=== PATIENT | male | born 1985 | race Caucasian/White ===

== ENCOUNTER 2018-03-18 10:01 | Observation (INO) | payer MEDICAID, SELFPAY ==
[2018-03-18] VITALS (10 sets, daily range): BP systolic 101–133; BP diastolic 64–81; PULSE 56–87; RESP 14–24; TEMP 36.6–36.8; O2SAT 97–98; BMI 30.1; BMI 30.2
--- NOTE | 2018-03-18 10:06 | EKG12_ITS ---
Test Reason : CP Blood Pressure : / mmHG Vent. Rate : 075 BPM Atrial Rate : 075 BPM P-R Int : 130 ms QRS Dur : 090 ms QT Int : 370 ms P-R-T Axes : 012 016 016 degrees QTc Int : 413 ms Normal sinus rhythm Normal ECG Confirmed by TARIK ZAYAS MD ([id number]), subeditor MARY MATUTE ([id number] on 03/23/2018 1:34:23 PM Referred By: Confirmed By:TARIK ZAYAS MD
--- NOTE | 2018-03-18 10:06 | RAD_ITS ---
STUDY: X-RAY CHEST REASON FOR EXAM: Male, 32 years old. Chest pain. TECHNIQUE: Single AP portable view of the chest. COMPARISON: None. FINDINGS: EKG electrodes are seen. The lungs are clear and expanded. There is no demonstrated pleural abnormality. Normal size heart. Normal mediastinum and jose. Normal visualized pulmonary arteries. Normal visualized aortic arch and descending thoracic aorta. Normal visualized thoracic spine. Normal visualized ribs, clavicles, and shoulders. There is no demonstrated abnormality of the visualized soft tissue structures of the upper abdomen. RAD/Chest 1 View (Portable) IMPRESSION: Normal x-ray examination of the chest. Electronically Signed: Aleksey Rios MD at 11:22 EDT Tel [phone], Service support ,
[2018-03-18 10:27] LABS: Absolute Lymphocyte Count 2.73 X10^3/ul (0.83-4.51); Absolute Neutrophil Count 3.7 X10^3/uL (2.0-7.7); Basophil# 0.06 X10^3/uL; Basophil% 0.8 % (0-1); Eosinophil# 0.34 X10^3/uL; Eosinophils% 4.4 % (0-5); Hematocrit 45.5 % (40-54); Hemoglobin 15.5 g/dl (13.0-16.5); Lymphocyte # 2.73 X10^3/ul (4.0); Lymphocyte % 35.7 % (19-41); Mean Corp Hgb Conc 34.1 g/gl (32-36); Mean Corpuscular Hgb 30.2 pg (27.0-32.0); Mean Corpuscular Volume 88.7 fL (80-94); Mean Platelet Vol. 8.7 fl (6.2-12.0); Monocyte# 0.74 X10^3/uL; Monocyte% 9.7 % (0-10); Neutrophil # 3.74 X10^3/uL (2.7-7.7); Neutrophil % 48.9 % (47-70); POSITIVE COUNT NO; POSITIVE DIFFERENTIAL NO; POSITIVE MORPHOLOGY NO; Platelet Count 294 K/mm3 (150-450); RBC Distribution Width CV 13.1 % (11.6-14.6); RBC Distribution Width SD 42.5 fl (35.1-43.9); Red Blood Count 5.13 M/mm3 (4.6-6.2); White Blood Count 7.7 K/mm3 (4.4-11.0)
--- NOTE | 2018-03-18 10:38 | ED.VISSUMM ---
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 He indicates he began having a chest pressure yesterday he left work pain went away and seemed to recur today and he comes in for evaluation. He does indicate that recently he is noticed with exertion he seems to have more chest discomfort. He has had no fever no cough no abdominal pain no history of PR PE or DVT about a year or 2 ago he was seen for similar type chest pain at a hospital near [facility] told he would need cardiac echo and other testing with that was never scheduled He does smoke a pack a day, no family history no tobacco on his part no illicit drug use pain is currently about a 3 out of 10 Physical Examination: [] No distress resting comforting the bed head exams unremarkable the lungs are clear heart tones are normal abdomen soft nontender upper lower extremities unremarkable pulses symmetric bilaterally he is moving all 4 extremities neurologically normal Test Results: [] Emergency Department Course and Treatment: [] EKG shows a sinus rhythm nothing acute screening labs are obtained aspirin EKG labs troponin chest x-ray unremarkable see those reports on reevaluation is resting comfortably remains without chest pain now he is concerned about the nature of the chest pain the fact that it is exertional goes into his left side that he had it before we discussed inpatient versus outpatient management and he is requesting admission for further evaluation and management this time page the hospitalist and asked him to see the patient for admission Treatment Plan: [] Disposition: [] Admit pending hospitalist evaluation Impression: [] Chest pain with exertional symptoms This note was generated with [employer] dictation software. It may contain incorrect words, spelling, and punctuation that were not noted in review of the chart prior to signing ED Disposition - Plan for ED Patient: Chief Complaint: Chest Pain Referrals: NOT,DEFINED [NON-STAFF] -
--- NOTE | 2018-03-18 10:41 | ED.DCSUM_ITS ---
- ER Visit Summary Date of Service: 03/18/18 Chief Complaint: [] Chest pressure since yesterday History of Present Illness: The patient is a 32 M [] denies a past history except to report at he had some type of a stroke left him with right- sided weakness and a seizure disorder the seizure disorder is well controlled is on no meds. 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 He indicates he began having a chest pressure yesterday he left work pain went away and seemed to recur today and he comes in for evaluation. He does indicate that recently he is noticed with exertion he seems to have more chest discomfort. He has had no fever no cough no abdominal pain no history of [place] PE or DVT about a year or 2 ago he was seen for similar type chest pain at a hospital near [facility] told he would need cardiac echo and other testing with that was never scheduled He does smoke a pack a day, no family history no tobacco on his part no illicit drug use pain is currently about a 3 out of 10 Physical Examination: [] No distress resting comforting the bed head exams unremarkable the lungs are clear heart tones are normal abdomen soft nontender upper lower extremities unremarkable pulses symmetric bilaterally he is moving all 4 extremities neurologically normal Test Results: [] Emergency Department Course and Treatment: [] EKG shows a sinus rhythm nothing acute screening labs are obtained aspirin EKG labs troponin chest x-ray unremarkable see those reports on reevaluation is resting comfortably remains without chest pain now he is concerned about the nature of the chest pain the fact that it is exertional goes into his left side that he had it before we discussed inpatient versus outpatient management and he is requesting admission for further evaluation and management this time page the hospitalist and asked him to see the patient for admission Treatment Plan: [] Disposition: [] Admit pending hospitalist evaluation Impression: [] Chest pain with exertional symptoms This note was generated with [employer] dictation software. It may contain incorrect words, spelling, and punctuation that were not noted in review of the chart prior to signing ED Disposition - Plan for ED Patient: Chief Complaint: Chest Pain Referrals: NOT,DEFINED [NON-STAFF] -
[2018-03-18] MEDS: Aspirin 81 MG TAB.CHEW 324 MG PO (10:43)
[2018-03-18] MEDS: 0.9% Normal Saline 1,000 ML 150 ML IV ×3 (10:43→20:07)
[2018-03-18 10:44] LABS: Anion Gap 7 (5-15); BUN 14 mg/dL (7-18); BUN/Creat Ratio 13.3 RATIO (10-20); Calcium,Total 9.4 mg/dL (8.5-10.1); Chloride 107 mmol/L (98-107); Creatinine, Serum 1.05 mg/dL (0.70-1.30); EST Glomerular Filtration Rate 87 mL/min (>60); Est Glom Filt Rate - Afr Amer 105 mL/min (>60); Estimated Creatinine Clearance 94.43 ml/min; Glucose 107 mg/dL (74-106); Sodium Level 139 mmol/L (136-145)
[2018-03-18 12:04] LABS: D-Dimer Quantitative (DVT/PE) < 0.27 FEU/ug/m (0.27-0.49)
--- NOTE | 2018-03-18 12:13 | HP.PCM_ITS ---
Problem List (1) Acute chest pain Status: Acute (2) Tobacco dependence Status: Chronic (3) BMI 30.0-30.9,adult Status: Chronic History of Present Illness Date of Admission: 03/18/18 Chief Complaint: Chest pain The patient is a 32 year old M in relatively good health with past medical history only significant for tobacco dependence who presented with chest pain. Pain started while is awake located in the left upper chest radiating down his left arm. Patient denies any shortness of breath no nausea no vomiting. Patient apparently had a similar presentation almost a year ago was seen at another hospital office stress test and echo however he refused. He presented to the emergency department where his initial set of cardiac enzymes came back negative. He was admitted to regular nursing floor for subsequent evaluation Past Medical History Past Medical History (Chronic Problems): Chronic Problems Tobacco dependence (Chronic) BMI 30.0-30.9,adult (Chronic) Allergies Penicillins [PCN] Allergy (Verified 03/18/18 10:43) Rash Home Medications: Ambulatory Orders Medication Instructions Recorded NK [NK] 03/18/18 Smoking Status: Current every day smoker - *Family History Paternal History Items: No pertinent history Maternal History Items: No pertinent history Review of Systems Constitutional: Denies: Anorexia, Chills, Fever, Night Sweats, Weight Change HEENT: Denies: Head Aches, Sinus Congestion, Sinus Drainage Cardiovascular: Reports: Chest Pain. Denies: Orthopnea, Palpitations, Paroxysmal Noc. Dyspnea Respiratory: Denies: Cough, Shortness of breath at rest, Shortness of breath upon exertion, Sputum production Gastrointestinal: Denies: Abdominal Pain, Hematemesis, Hematochezia, Nausea, Melena, Vomiting Genitourinary: Denies: Dysuria, Frequency, Hematuria, Urgency Musculoskeletal: Denies: Joint Pain, Joint Tenderness Skin: Denies: Rash Neurological: Denies: Focal weakness, Numbness, Tingling Psychiatric: Denies: Homicidal Ideations, Suicidal Ideations Hematologic/ Lymphatic: Denies: Easy Bruising, Easy Bleeding VTE Information - Inpt Only VTE Present on Admission: No VTE Mechan Device Prophylaxis: Knee High KOBE Hose VTE Pharm Prophylaxis ordered?: Yes Patient Problems: Active and Suspected Problems Acute chest pain (Acute) Objective: GENERAL: cooperative HEENT: Clear conjunctiva, NECK; supple, normal thyroid, CHEST: Clear to auscultation bilaterally, HEART: Regular S1 S2, no audible murmurs ABDOMEN: soft, non-tender, normoactive bowel sounds, RECTAL: deferred EXTREMITIES: No edema, no clubbing, no cyanosis. 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 SKIN: No lesions no erythema, - Physical Exam Vital Signs Temp Pulse Resp BP Pulse Ox 97.9 F 73 16 133/81 H 98 03/18/18 10:02 03/18/18 10:02 03/18/18 10:02 03/18/18 10:02 03/18/18 10:02 Oxygen Flow Rate (L/min) 2 Oxygen Delivery Method Nasal Cannula Weight: 87.2 kg Body Mass Index (BMI) 30.1 Laboratory Tests Past 24 Hrs 03/18/18 03/18/18 03/18/18 10:20 10:20 10:20 WBC 7.7 RBC 5.13 Hgb 15.5 Hct 45.5 MCV 88.7 MCH 30.2 MCHC 34.1 RDW 13.1 RDW Differential 42.5 Plt Count 294 MPV 8.7 Immature Gran % (Auto) 0.500 Neut % (Auto) 48.9 Lymph % (Auto) 35.7 [place] % (Auto) 9.7 Eos % (Auto) 4.4 Baso % (Auto) 0.8 Absolute Neuts (auto) 3.7 Absolute Lymphs (auto) 2.73 Total Counted Not Reportable D-Dimer Quant (PE/DVT) < 0.27 L Sodium 139 Potassium 4.0 Chloride 107 Carbon Dioxide 25.0 Anion Gap 7 BUN 14 Creatinine 1.05 Estim Creat Clear Calc 94.43 Est GFR (MDRD) Af Amer 105 Est GFR (MDRD) Non-Af 87 BUN/Creatinine Ratio 13.3 Glucose 107 H Calcium 9.4 Troponin I < 0.015 Assessment/Plan Active and Suspected Problems Acute chest pain (Acute) Patient is a 32-year-old gentleman presenting with chest pain 1. Chest Pain: Placed on a monitored bed; rule out for Myocardial infarction with serial cardiac enzymes and EKGs. If negative, rule out Myocardial Ischemia with nuclear medicine stress test. 2. Tobacco dependence counseled on cessation, offered nicotine patch for tobacco cravings 3. Obesity with BMI of 30.1 weight loss advised 4. DVT prophylaxis low risk did encourage early ambulation Code Visit OBSV E&M: 79682 Initial observation care L3
--- NOTE | 2018-03-18 13:32 | EKG12_ITS ---
Test Reason : ADMISSION CP EKG Blood Pressure : / mmHG Vent. Rate : 061 BPM Atrial Rate : 061 BPM P-R Int : 140 ms QRS Dur : 092 ms QT Int : 398 ms P-R-T Axes : 012 017 018 degrees QTc Int : 400 ms Normal sinus rhythm with sinus arrhythmia Normal ECG No previous ECGs available Confirmed by MARQUEZ JIN, TARIK ([id number]), scientific publications editor MARY MATUTE ([id number]) on 03/23/2018 2:14:06 PM Referred By: JAMES Confirmed By:TARIK ZAYAS MD
[2018-03-19 01:51] VITALS: BP 93/46; PULSE 60; RESP 13; TEMP 36.6; O2SAT 97
[2018-03-19] MEDS: 0.9% Normal Saline 1,000 ML 150 ML IV (02:28)
[2018-03-19 03:07] VITALS: PULSE 49
[2018-03-19 03:13] VITALS: PULSE 56
--- NOTE | 2018-03-19 05:55 | EKG12_ITS ---
Test Reason : AM EKG Blood Pressure : / mmHG Vent. Rate : 061 BPM Atrial Rate : 061 BPM P-R Int : 132 ms QRS Dur : 098 ms QT Int : 400 ms P-R-T Axes : 032 025 021 degrees QTc Int : 402 ms Normal sinus rhythm Normal ECG When compared with ECG of 18-MAR-2018 13:58, MANUAL COMPARISON REQUIRED, DATA IS UNCONFIRMED Confirmed by MARQUEZ JIN, TARIK ([id number]), film or videotape editor MARY MATUTE ([id number]) on 03/23/2018 2:15:13 PM Referred By: JAMES Confirmed By:TARIK ZAYAS MD
[2018-03-19 05:59] VITALS: BP 113/81; PULSE 68; RESP 20; TEMP 36.4; O2SAT 97
[2018-03-19] MEDS: 0.9% NaCl Peripheral Flush Adult/Peds IV (06:05)
[2018-03-19 06:14] VITALS: PULSE 59
[2018-03-19 06:24] LABS: Hematocrit 41.7 % (40-54); Hemoglobin 14.4 g/dl (13.0-16.5); Mean Corp Hgb Conc 34.5 g/gl (32-36); Mean Corpuscular Hgb 30.8 pg (27.0-32.0); Mean Corpuscular Volume 89.1 fL (80-94); Mean Platelet Vol. 8.9 fl (6.2-12.0); Platelet Count 281 K/mm3 (150-450); RBC Distribution Width CV 12.9 % (11.6-14.6); RBC Distribution Width SD 41.8 fl (35.1-43.9); Red Blood Count 4.68 M/mm3 (4.6-6.2); White Blood Count 6.8 K/mm3 (4.4-11.0)
[2018-03-19 06:25] LABS: Scan Indicated on CBC? Y/N NO
[2018-03-19 06:27] LABS: Partial Thromboplast Time 27.2 Seconds (24.1-36.2); Prothrombin Time (Protime)PT. 13.2 SECONDS (11.7-14.9)
[2018-03-19 07:13] LABS: Anion Gap 6 (5-15); BUN 15 mg/dL (7-18); BUN/Creat Ratio 17.9 RATIO (10-20); Calcium,Total 8.5 mg/dL (8.5-10.1); Chloride 110 mmol/L (98-107); Creatinine, Serum 0.84 mg/dL (0.70-1.30); EST Glomerular Filtration Rate 112 mL/min (>60); Est Glom Filt Rate - Afr Amer 136 mL/min (>60); Estimated Creatinine Clearance 118.04 ml/min; Glucose 97 mg/dL (74-106); Potassium 4.2 mmol/L (3.5-5.1); Sodium Level 139 mmol/L (136-145)
--- NOTE | 2018-03-19 08:39 | STRESSREP ---
Stress Test Report Date: 03/19/2018 Procedure: Exercise tolerance test/imaging study Indications: Chest pain Consent: Per the patient Procedure: The patient exercised on a Krzysztof protocol for 11 minutes completing Stage III and 2 minutes of Stage II achieving a peak heart rate of 164 bpm (87 % predicted maximal heart rate) with a peak blood pressure 150/70 mmHg and a peak MET capacity of 13 METs. The baseline ECG demonstrated sinus rhythm. The peak exercise ECG demonstrated no obvious ECG changes. There were no cardiac dysrhythmias pretest, during exercise, or recovery. The functional capacity was considered good. There was discomfort pretest, during exercise, and recovery. The examination was discontinued secondary to dyspnea and leg fatigue. Impression: 1. Technically adequate (percent predicted maximal heart rate greater than 85%) exercise tolerance test 2. Peak exercise ECG no obvious ECG changes 3. There were no cardiac dysrhythmias pretest, during exercise, or recovery. 4. Nuclear images pending Myocardial perfusion imaging study: Technique: The patient was injected with 14.3 mCi of technetium 99m Cardiolite and subsequently rest SPECT Cardiolite nuclear imaging was obtained in the horizontal long, vertical long, and short axis views. The patient exercised on a Krzysztof protocol for 11 minutes completing Stage III and 2 minutes of Stage II achieving a peak heart rate of 164 bpm (87 % predicted maximal heart rate) with a peak blood pressure 150/70 mmHg and a peak MET capacity of 13 METs. The patient was injected with 43.9 mCi of technetium 99m Cardiolite and subsequently stress SPECT Cardiolite nuclear imaging was obtained in the horizontal long, vertical long, and short axis views. A gated Cardiolite study at peak stress was obtained. Interpretation: Rest and stress SPECT Cardiolite nuclear imaging status post realignment, normalization, and attenuation correction, demonstrates the appearance of a small area of diminished myocardial perfusion/tracer uptake in the distal anteroseptal segments at rest which appear to improve and/or normalize following stress. There is end systolic thickening and brightening. The gated Cardiolite study demonstrates myocardial thickening and inward wall motion. The reported LVEF is 60 %. Impression: 1. Rest and stress SPECT Cardiolite nuclear imaging demonstrate small area of diminished myocardial perfusion/tracer uptake in the distal anteroseptal segments at rest which appear to improve and/or normalize following stress appearing compatible shifting soft tissue attenuation/artifact with no myocardial perfusion changes consider diagnostic for associated stress-induced myocardial ischemia or previous myocardial injury/infarction. 2. The gated Cardiolite study reports an LVEF of 60 %. This note was generated with [employer] software. It may contain incorrect words, spelling, and punctuation that were not noted in checking the note before signing.
--- NOTE | 2018-03-19 08:44 | STRESSREP_ITS ---
Stress Test Report Date: 03/19/2018 Procedure: Exercise tolerance test/imaging study Indications: Chest pain Consent: Per the patient Procedure: The patient exercised on a Krzysztof protocol for 11 minutes completing Stage III and 2 minutes of Stage II achieving a peak heart rate of 164 bpm (87 % predicted maximal heart rate) with a peak blood pressure 150/70 mmHg and a peak MET capacity of 13 METs. The baseline ECG demonstrated sinus rhythm. The peak exercise ECG demonstrated no obvious ECG changes. There were no cardiac dysrhythmias pretest, during exercise, or recovery. The functional capacity was considered good. There was discomfort pretest, during exercise, and recovery. The examination was discontinued secondary to dyspnea and leg fatigue. Impression: 1. Technically adequate (percent predicted maximal heart rate greater than 85% ) exercise tolerance test 2. Peak exercise ECG no obvious ECG changes 3. There were no cardiac dysrhythmias pretest, during exercise, or recovery. 4. Nuclear images pending Myocardial perfusion imaging study: Technique: The patient was injected with 14.3 mCi of technetium 99m Cardiolite and subsequently rest SPECT Cardiolite nuclear imaging was obtained in the horizontal long, vertical long, and short axis views. The patient exercised on a Krzysztof protocol for 11 minutes completing Stage III and 2 minutes of Stage II achieving a peak heart rate of 164 bpm (87 % predicted maximal heart rate) with a peak blood pressure 150/70 mmHg and a peak MET capacity of 13 METs. The patient was injected with 43.9 mCi of technetium 99m Cardiolite and subsequently stress SPECT Cardiolite nuclear imaging was obtained in the horizontal long, vertical long, and short axis views. A gated Cardiolite study at peak stress was obtained. Interpretation: Rest and stress SPECT Cardiolite nuclear imaging status post realignment, normalization, and attenuation correction, demonstrates the appearance of a small area of diminished myocardial perfusion/tracer uptake in the distal anteroseptal segments at rest which appear to improve and/or normalize following stress. There is end systolic thickening and brightening. The gated Cardiolite study demonstrates myocardial thickening and inward wall motion. The reported LVEF is 60 %. Impression: 1. Rest and stress SPECT Cardiolite nuclear imaging demonstrate small area of diminished myocardial perfusion/tracer uptake in the distal anteroseptal segments at rest which appear to improve and/or normalize following stress appearing compatible shifting soft tissue attenuation/artifact with no myocardial perfusion changes consider diagnostic for associated stress-induced myocardial ischemia or previous myocardial injury/infarction. 2. The gated Cardiolite study reports an LVEF of 60 %. This note was generated with [employer] software. It may contain incorrect words, spelling, and punctuation that were not noted in checking the note before signing.
--- NOTE | 2018-03-19 08:51 | PCM.DC ---
- Discharge Diagnoses Current Active Problems: Current Active and Chronic Problems Acute chest pain (Acute) Tobacco dependence (Chronic) BMI 30.0-30.9,adult (Chronic) You will use the following diet at home:: No restrictions Instructions: ED Chest Pain NonCardiac Allergies/Adverse Reactions: Allergies Penicillins [PCN] Allergy (Verified 03/18/18 10:43) Rash Medications to take at Discharge NK [NK] 03/18/18 Primary Care Physician: NOT,DEFINED [NON-STAFF] - Proposed Discharge Date: 03/19/18
--- NOTE | 2018-03-19 08:54 | PCM.DC.SUM ---
Discharge Date and Diagnosis - Problem List Patient Problems: Active and Suspected Problems Acute chest pain (Acute) Date of Admission: 03/18/18 Date of Discharge: 03/19/18 - Primary Discharge Diagnosis Active and Suspected Problems Acute chest pain (Acute) - Secondary Discharge Diagnosis Chronic Problems Tobacco dependence (Chronic) BMI 30.0-30.9,adult (Chronic) Hospital Course and Treatment Summary of Care Provided: Patient is a 32-year-old gentleman presenting with chest pain 1. Chest Pain: Placed on a monitored bed; did rule out for Myocardial infarction with serial cardiac enzymes and EKGs. Underwent a nuclear stress test on 03/19/2018 which was negative for stress-induced ischemia patient was discharged and instructed to follow-up with PCP for subsequent care 2. Tobacco dependence counseled on cessation, offered nicotine patch for tobacco cravings 3. Obesity with BMI of 30.1 weight loss advised 4. DVT prophylaxis low risk did encourage early ambulation Discharge Diet: No Restrictions Home Medications: Medications to take at Discharge NK [NK] 03/18/18 Primary Care Physician: NOT,DEFINED [NON-STAFF] - Patient Instructions: ED Chest Pain NonCardiac Disposition: Home Minutes spent on discharge:: 35 Patient Condition:: Stable Medical Necessity - Tobacco Use Smoking Status: Current every day smoker Meaningful Use Info Meaningful Use Diagnoses (Choose all that apply): None applicable Code Visit OBSV E&M: 49675 Observation care discharge
== END 2018-03-19 08:51 | disposition home or self-care (01) ==
LOC: ED 11:26 → PCU 12:57
PROVIDERS: Admitting Provider Internal Medicine; Emergency Provider Emergency Medicine; Visit Provider Internal Medicine
DX: R07.89 Other chest pain (principal); E66.9 Obesity, unspecified; Z68.30 Body mass index [BMI] 30.0-30.9, adult; Z71.3 Dietary counseling and surveillance; F17.200 Nicotine dependence, unspecified, uncomplicated
CPT/HCPCS: 36415; 71045; 78452; 80048; 84484; 85025; 85027; 85379; 85610; 85730; 93005; 93017; 96360; 96361; 99218; 99285; A9500; J7030; A4216; G0378

== ENCOUNTER 2024-01-12 14:38 | Emergency (ER) | payer OTHER, SELFPAY ==
[2024-01-12 14:39] VITALS: BP 139/94; PULSE 103; RESP 18; TEMP 36.5; O2SAT 98; BMI 32.5
--- NOTE | 2024-01-12 15:39 | EKG12_ITS ---
Test Reason : TIA/CVA Blood Pressure : / mmHG Vent. Rate : 080 BPM Atrial Rate : 080 BPM P-R Int : 120 ms QRS Dur : 078 ms QT Int : 358 ms P-R-T Axes : 031 025 033 degrees QTc Int : 412 ms Normal sinus rhythm Normal ECG Confirmed by Torin Golden ([id number]), tape editor SATYA URENA ([id number]) on 01/13/2024 9:42:40 AM Referred By: Confirmed By:Torin Golden
--- NOTE | 2024-01-12 16:11 | CT_ITS ---
STUDY: CTA HEAD AND NECK WITH CONTRAST REASON FOR EXAM: Male, 38 years old. headache and dizzy RADIATION DOSAGE (If Supplied By Facility): CTDIvol = ( 25.97 ) mGy, DLP = ( 1594.10 ) mGycm TECHNIQUE: CT angiography was performed with a multi-detector CT scanner. Data acquisition was obtained from the skull base through the vertex following intravenous administration of IV 100mL Isovue-370. MIP images were reconstructed from the axial data set. Post-processing of the angiographic images was performed, with multiplanar reformation and 3D reconstruction. Individualized dose optimization techniques were used for this CT. COMPARISON: No relevant priors. FINDINGS: Normal bilateral petrous carotid arteries. Premature calcific plaquing of the right cavernous carotid artery with a normal supraclinoid bifurcation. Premature calcific plaquing of the left cavernous carotid artery with a normal supraclinoid bifurcation. Normal right A1 segments of the anterior cerebral artery. Normal left A1 segments of the anterior cerebral artery. Anterior communicating artery not visualized consistent with normal variant). Normal bilateral A2 segments of the anterior cerebral arteries. Normal right M1 and M2 segments of the middle cerebral arteries, with a normal M1 bifurcation. Normal left M1 and M2 segments of the middle cerebral arteries, with a normal M1 bifurcation. Hypoplastic posterior communicating arteries consistent with normal variant. Tortuous mildly calcified distal left vertebral. Diffusely narrowed right vertebral terminating in PICA which is normal variant. Normal basilar artery with a normal basilar bifurcation. The visualized bilateral superior cerebellar (SCA) arteries are normal. Normal bilateral P1, P2 and visualized P3 segments of the posterior cerebral arteries. There is no demonstrated aneurysm of the [place]. AORTIC ARCH: Normal visualized aortic arch. Normal origins of the brachiocephalic, left common carotid, and left subclavian arteries. RIGHT CAROTID ARTERIES: Normal right common carotid artery (CCA). Normal right common carotid bulb. Normal origin of the right internal carotid (ICA) artery without a hemodynamically significant stenosis. Normal visualized cervical portion of the right internal carotid artery. Normal origin of the right external carotid artery (ECA). LEFT CAROTID ARTERIES: Normal left common carotid artery (CCA). Normal left common carotid bulb. Normal origin of the left internal carotid (ICA) artery without a hemodynamically significant stenosis. Normal visualized cervical portion of the left internal carotid artery. Normal origin of the left external carotid artery (ECA). VERTEBRAL ARTERIES: [The left vertebral is dominant and normal caliber. There is mildly diffusely diminished narrowed right vertebral terminating in PICA consistent with normal variant. CT/CTA Head AND Neck W/ Contrast IMPRESSION: 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 No evidence for hemodynamically significant stenosis or major vessel occlusion Electronically Signed: Adolfo Fleming MD at 17:03 EST ,
--- NOTE | 2024-01-12 16:11 | EX.ED.VIS.HA ---
HPI History of Present Illness Chief Complaint: Dizziness Informant: patient Onset/Context/Timing Onset: Days Context: Gradual Timing: Continuous Quality -Headache: Negative for Similar Prior Headaches Current Severity: Mild Maximum Severity: Moderate Associated Symptoms/Injury Associated Symptoms: Positive for Nausea; Negative for Fever, Vomiting, Sore Throat, Sinus Pressure, Numbness, Tingling, Preceding Aura, Visual Changes, Blurred Vision, Photophobia or Visual Loss Injury - RCOHA: Negative for Direct Trauma, Fall or Assault Narrative Narrative: 38-year-old male at he had a stroke he had a seizure history but he is currently on no medications for that. Says had headache and dizziness which she describes as off-balance for the last 5 days. Said occasionally uncommonly will get a headache but has had nothing like this and he said this was been constant to usually come and go other headaches that he gets. It is better if he is fine. It is worse if he is moving. He is photophobic with it. He has nausea without vomiting. No fever. No significant trauma he is on no blood thinners not even aspirin. Prior similar symptoms: No Recent Illness/Hospitalization: No PFSH PFSH Home Medications NK 03/18/18 [History Last Taken Unknown] Allergy/AdvReac Type Severity Reaction Status Date / Time Penicillins [PCN] Allergy Rash Verified 01/12/24 14:39 Social History Smoking Status: Current every day smoker tobacco type: e-cigarettes ROS ROS ED ROS Narrative Headache. Nausea. No vomiting, fever or diarrhea. Review of Systems ROS Unobtainable: Denies due to encephalopathy Constitutional Constitutional ED: Denies chills or fever(s) Eyes Eyes: Denies blurry vision ENT ENT ED: Denies ear pain Cardiovascular Cardiovascular: Denies chest pain Respiratory/Chest Respiratory/Chest: Denies cough or dyspnea Gastrointestinal Gastrointestinal: Reports nausea; Denies abdominal pain, constipation, diarrhea, melena or vomiting Genitourinary Genitourinary ED: Denies dysuria or hematuria Musculoskeletal Musculoskeletal: Denies arthralgias, back pain or myalgias Integumentary Denies abscess or Abrasions Neurologic Neurologic: Reports headache(s); Denies paresthesias or weakness Psychiatric Psychiatric: Denies anxiety or depression Endocrine Endocrinology: Denies polydipsia, polyphagia or polyuria Hematologic/Lymphatic Hematologic/Lymphatic: Denies easy bleeding, easy bruising or lymphadenopathy Allergic/Immunologic Allergic/Immunologic ED: Denies mouth swelling, tongue swelling or urticaria EXAM Physical Exam Narrative Exam Narrative: Well-appearing 38-year-old male. Vital signs stable afebrile. Current blood pressure 139/94. H EENT exam pupils round and light his motions are intact. No facial droop. Normal speech. No trauma to his face or scalp. Nontender. Neck nontender. Lungs clear. Heart regular rhythm rate about 100 no murmur. Chest wall and ribs nontender. Abdomen soft nontender. Moving all 4 extremities. 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 Dorsi plantarflexion intact. Neurologic exam normal. NIH is 0. Fingertip to nose within normal limits. No drift. Normal strength and sensation. Answering questions and following commands. Const Vital Signs: 01/12/24 14:39 01/12/24 16:33 01/12/24 16:34 Temperature 97.7 F L Temperature Source Temporal Pulse Rate 103 H Respiratory Rate 18 Respiratory Pattern Normal Blood Pressure 139/94 H Blood Pressure Mean 109 Pulse Ox 98 Oxygen Delivery Method Room Air Room Air 01/12/24 16:39 Temperature Temperature Source Pulse Rate 87 Respiratory Rate 18 Respiratory Pattern Blood Pressure 111/84 H Blood Pressure Mean 93 Pulse Ox 98 Oxygen Delivery Method Room Air Positive well nourished and well developed; Negative for cachectic, contractures or unkempt General Appearance ED: well developed and NAD; Negative for unkempt, cachectic, contractures, cyanotic, diaphoretic or pallor Nutritional Appearance: Negative for cachectic HEENT Reports normocephalic and moist mucous membranes; Denies dry mucous membranes atraumatic; Negative for trauma, tenderness, temporal artery tenderness or vesicular rash Face and Sinus: Negative for sinus tenderness Mouth ED: No dry mucous membranes Mouth: No dry mucous membranes Eyes EOMs intact bilaterally Neck no lymphadenopathy, supple, no meningeal signs and no JVD General: Negative for tenderness Resp normal respiratory effort and clear to auscultation bilaterally Effort and Inspection: Negative for retractions Auscultation: Negative for rales, rhonchi or wheezes Cardio regular rate, regular rhythm, S1 normal heart sound, S2 normal heart sound and no murmurs Rate: Negative for bradycardia or tachycardic Rhythm: Negative for abnormal rhythm GI non-tender and non-distended Auscultation: normoactive bowel sounds Palpation: soft; Negative for firm, tender or guarding Back/Spine no CVA tenderness General Back: Negative for CVA tenderness Cervical Spine: Negative for cervical spine tenderness Thoracic Spine / Upper Back: Negative for thoracic spinal tenderness Lumbar Spine / Lower Back: Negative for lumbar spinal tenderness Extremity normal to inspection and full ROM General Extremety ED: Negative for edema or tenderness General Extremity: Negative for edema Neuro oriented x3, CN's II-XII intact bilaterally and no sensory deficits noted Neuro Narrative: Awake alert oriented x 3. Answer questions following commands. Fingertip to nose within normal limits. Rapid hand movements normal. No drift. NIH of 0. GCS of 15. Sensorium / Orientation: awake, alert, oriented to person, oriented to place and oriented to time; Negative for orientation impaired, lethargic or stuporous Coordination / Balance: [id number] test normal Speech: speech normal Motor Exam: strength 5/5 throughout Comatose: Negative for other Psych mental status grossly normal Appearance: Negative for unkempt Attitude: No agitated Mood & Affect: Negative for depressed, anxious or tearful Skin General Skin Exam: Negative for jaundice or pallor Lesions: no lesions Rashes: no rashes Trauma: Negative for abrasion MDM MDM MDM Narrative Medical decision making narrative: 38-year-old male with headache and dizziness. The headaches been going on for 5 days. CAT scan labs are being obtained. His neurologic exam currently is normal. Repeat exam patient doing well at 6:15 PM. Repeat exam is normal. He stood up he walked in the hallway had no difficulty walking. I went over his test with him. We do not have a specific cause of his symptoms. He does not have a local primary care physician he will be referred to someone locally. I did ask him about carbon monoxide due to the headache he said he and his live at home together she has not been having any headaches or new problem. He will be given IV Toradol discharged to home. History & Record Review Discussion w/independent historian: Patient Additional record(s) reviewed:: No prior records Lab Data Attestation: I reviewed the patient's lab results. Lab results narrative: CBC is a white count 13.7. H&H of 15 and 45. Platelets 375. PT/INR 12 and 1. PTT 26. Electrolytes show gap 4. Normal BUN and creatinine. Glucose 97. Labs: Laboratory Results - last 24 hr 01/12/24 16:11 WBC 13.7 H RBC 5.15 Hgb 15.6 Hct 45.2 MCV 87.8 MCH 30.3 MCHC 34.5 RDW Std Deviation 39.0 RDW Coeff of Panfilo 12.2 Plt Count 375 MPV 9.0 Immature Gran % (Auto) 0.400 Neut % (Auto) 44.7 L Lymph % (Auto) 39.3 [place]oshone % (Auto) 8.5 Eos % (Auto) 6.1 H Baso % (Auto) 1.0 Absolute Neuts (auto) 6.1 Absolute Lymphs (auto) 5.38 H Nucleated RBC % 0 Differential Comment SEE COMMENT Atypical Lymphocytes 1+ Platelet Estimate ADEQUATE RBC Morphology N CHROM Anisocytosis RARE PT 12.7 INR 1.0 APTT 26.7 Sodium 138 Potassium 4.2 Chloride 108 H Carbon Dioxide 26.0 Anion Gap 4 L BUN 13 Creatinine 0.99 Estim Creat Clear Calc 114.39 Est GFR (MDRD) Af Amer 109 Est GFR (MDRD) Non-Af 90 BUN/Creatinine Ratio 13.2 Glucose 97 Calcium 9.4 Radiography Chest X-Ray - ED: 1 View, Read by ED Physician, Read by Radiologist, Normal, Heart, Lungs, Mediastinum, Bony Structures and No Acute Disease Diagnostic Testing: Clinical Impression(s) from Imaging Studies Head/Neck CTA 01/12/24 16:11 IMPRESSION: 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 No evidence for hemodynamically significant stenosis or major vessel occlusion Electronically Signed: Adolfo Fleming MD at 17:03 EST , Chest X-Ray 01/12/24 16:15 IMPRESSION: Normal x-ray examination of the chest. Electronically Signed: Adolfo Fleming MD at 16:23 EST , Chest x-ray, portable, single view interpreted by myself and radiologist shows no acute abnormality. Normal cardiac silhouette. Normal lung wilson. Normal mediastinum. Rhythm Strip Rhythm Strip: Sinus Rhythm Rate: 80 Ectopy: None EKG Initial EKG: Attestation: I personally reviewed and interpreted this EKG as follows: Interpretation: Sinus Rhythm and No Acute Injury Pattern Comments: Normal sinus rhythm rate 80 no acute signs of [place] or ischemia. Discharge Plan Triage Chief Complaint: Dizziness ED Provider: Fausto De Dios Dx/Rx/DC Orders Clinical Impression: Dizziness, Headache Instructions: ED Dizziness, Uncertain Cause Prescriptions: No Action NK Primary Care Provider: Care Physician,No Primary Referrals: Gallo Altamirano MD [Med Staff - [employer]] - As soon as possible Care Physician,No Primary [Primary Care Provider] - Activity Restrictions/Additional Instructions: Your labs and CAT scan were unremarkable. Tylenol and Motrin for pain. Follow-up with a local primary care physician. Return to the emergency department if you are feeling worse. Disposition Disposition: Home, Self Care
--- NOTE | 2024-01-12 16:15 | RAD_ITS ---
STUDY: X-RAY CHEST REASON FOR EXAM: Male, 38 years old. Stroke TECHNIQUE: AP portable COMPARISON: None. FINDINGS: The lungs are clear and expanded. There is no demonstrated pleural abnormality. Normal size heart. Normal mediastinum and jose. Normal visualized pulmonary arteries. Normal visualized aortic arch and descending thoracic aorta. Normal visualized thoracic spine. Normal visualized ribs, clavicles, and shoulders. There is no demonstrated abnormality of the visualized soft tissue structures of the upper abdomen. RAD/Chest 1 View (Portable) IMPRESSION: Normal x-ray examination of the chest. Electronically Signed: Adolfo Fleming MD at 16:23 EST ,
[2024-01-12 16:25] LABS: Absolute Lymphocyte Count 5.38 X10^3/uL (0.83-4.51); Absolute Neutrophil Count 6.1 X10^3/uL (2.0-7.7); Basophil# 0.14 X10^3/uL; Eosinophil# 0.83 X10^3/uL; Eosinophils% 6.1 % (0-5); Hematocrit 45.2 % (40-54); Hemoglobin 15.6 g/dL (13.0-16.5); Lymphocyte # 5.38 X10^3/ul (0.83-4.51); Lymphocyte % 39.3 % (19-41); Mean Corp Hgb Conc 34.5 g/dL (32-36); Mean Corpuscular Hgb 30.3 pg (27.0-32.0); Mean Corpuscular Volume 87.8 fL (80-94); Monocyte# 1.16 X10^3/uL; Monocyte% 8.5 % (0-10); NRBC Flagged by Analyzer 0 % (0-5); Neutrophil # 6.13 X10^3/uL (2.7-7.7); Neutrophil % 44.7 % (47-70); POSITIVE DIFFERENTIAL YES; POSITIVE MORPHOLOGY YES; Platelet Count 375 K/mm3 (150-450); RBC Distribution Width CV 12.2 % (11.6-14.6); Red Blood Count 5.15 M/mm3 (4.6-6.2); White Blood Count 13.7 K/mm3 (4.4-11.0)
[2024-01-12 16:28] LABS: Differential Indicated SCAN CRITERIA MET
[2024-01-12 16:34] LABS: Prothrombin Time (Protime)PT. 12.7 SECONDS (11.7-14.9)
[2024-01-12 16:35] LABS: Partial Thromboplast Time 26.7 Seconds (24.1-36.2)
[2024-01-12 16:39] VITALS: BP 111/84; PULSE 87; RESP 18; O2SAT 98
[2024-01-12 16:48] LABS: Anion Gap 4 (5-15); BUN 13 mg/dL (7-18); BUN/Creat Ratio 13.2 RATIO (10-20); Calcium,Total 9.4 mg/dL (8.5-10.1); Chloride 108 mmol/L (98-107); Creatinine, Serum 0.99 mg/dL (0.70-1.30); EST Glomerular Filtration Rate 90 mL/min (>60); Est Glom Filt Rate - Afr Amer 109 mL/min (>60); Estimated Creatinine Clearance 114.39 ml/min; Glucose 97 mg/dL (74-106); Potassium 4.2 mmol/L (3.5-5.1); Sodium Level 138 mmol/L (136-145)
[2024-01-12 17:05] LABS: Anisocytosis RARE; Atypical Lymphocyte 1+ %; Platelet Estimate ADEQUATE (ADEQ); Red Cell Morphology N CHROM NORMAL (NORM C&C)
[2024-01-12 18:16] VITALS: BP 110/65; PULSE 81; RESP 16; TEMP 36.4; O2SAT 97
[2024-01-12] MEDS: Ketorolac 30 MG/ML Syringe IV (18:24)
== END 2024-01-12 18:29 | disposition home or self-care (01) ==
PROVIDERS: Emergency Provider Emergency Medicine; Visit Provider Emergency Medicine
DX: R42 Dizziness and giddiness (principal); R56.9 Unspecified convulsions; R51.9 Headache, unspecified; R11.0 Nausea; F17.290 Nicotine dependence, other tobacco product, uncomplicated
CPT/HCPCS: 70496; 70498; 71045; 80048; 85025; 85610; 85730; 93005; 96374; 99284; Q9967; A4216